=== PATIENT | female | born 1950 | race Two or more races ===

== ENCOUNTER 2025-04-17 06:00 | Day surgery (SDC) | payer OTHER ==
[2025-04-15 11:43] LABS: BASO % 1.3 % (0.1-1.2); EOS # 0.38 (0.04-0.54); EOS % 5.3 % (0.7-7.0); LYMPH # 2.51 (1.18-3.74); LYMPH % 35.2 % (19.3-53.1); MEAN PLATELET VOLUME 9.70 fl (9.4-12.4); MONO # 0.54 (0.24-0.82); MONO % 7.6 % (4.7-12.5); NEUT # 3.58 (1.56-6.13); NEUT % 50.2 % (34.0-71.1); RED CELL DISTRIBUTION WIDTH 13.4 % (11.6-14.4)
[2025-04-15 12:04] VITALS: BP 124/74
[2025-04-15 12:04] LABS: INR 0.98
[2025-04-15 12:40] LABS: ALT/SGPT 14.0 U/L (12-78); AST/SGOT 11.0 U/L (15-37); BILIRUBIN TOTAL 0.87 mg/dL (0.3-1.2); BUN CREA RATIO 24.0 (7.0-25.0); CREATININE SERUM 0.67 mg/dL (0.55-1.02); GFR 86.04; GLOBULINA 3.5 G/DL (2.4-3.5); GLUCOSE FASTING 108.0 mg/dL (65-100); OSMOLALITY SERUM 285.0 MOSM/KG (275-295)
[~2025-04-17] VITALS: Ht 157.5 cm; Wt 70.8 kg
[~2025-04-17 06:00] MED LIST: AVAPRO300 MG PO; CILOSTAZOL50 MG PO; ECOTRIN81 MG PO; ESOMEPRAZOLE MA40 MG PO; LIPITOR20 MG PO; NEURONTIN300 MG PO; NORVASC5 MG PO; PEPCID AC20 MG PO; SYNJARDY XR 101 EACH PO
[2025-04-17] MEDS ORDERED: GLUCAGON 1 MG VIAL ONE (07:43)
[2025-04-17] MEDS ORDERED: IOVERSOL 320 MG/ML - 50 ML VIAL IV ONE (07:43)
[2025-04-17] MEDS ORDERED: DICLOFENAC SODIUM 100 MG SUPP.RECT TOP ONE (08:45)
== END 2025-04-17 11:10 | disposition home or self-care (01) ==
LOC: CIR.AMB 06:00
PROVIDERS: ATTEND Internal Medicine
DX: T85.590A Other mechanical complication of bile duct prosthesis, initial encounter (principal); K83.2 Perforation of bile duct; K91.81 Other intraoperative complications of digestive system